=== PATIENT | female | born 1940 | race Caucasian/White ===

== ENCOUNTER 2016-08-27 21:22 | Inpatient (IN) | payer OTHER ==
[~2016-08-27] VITALS: Ht 170.2 cm; Wt 66.2 kg
[2016-08-28 00:23] LABS: HEMOGLOBIN 13.3 gm/dl (12.3-15.3); RED BLOOD COUNT 4.28 M/UL (4.00-5.10); WHITE BLOOD COUNT 9.5 K/UL (4.5-11.0)
[2016-08-28 01:15] LABS: BUN/CREATININE RATIO 31 (0-10)
[2016-08-28 05:42] LABS: RED BLOOD COUNT 4.24 M/UL (4.00-5.10)
[2016-08-28 06:03] LABS: BUN/CREATININE RATIO 27 (0-10)
[2016-08-30 05:21] LABS: HEMOGLOBIN 11.9 gm/dl (12.3-15.3); RED BLOOD COUNT 3.94 M/UL (4.00-5.10)
[2016-08-30 05:22] LABS: WHITE BLOOD COUNT 7.8 K/UL (4.5-11.0)
[2016-08-30 05:44] LABS: BUN/CREATININE RATIO 24 (0-10)
[2016-08-30 22:10] LABS: HEMOGLOBIN 11.6 gm/dl (12.3-15.3); RED BLOOD COUNT 3.74 M/UL (4.00-5.10)
[2016-08-30 22:11] LABS: WHITE BLOOD COUNT 18.9 K/UL (4.5-11.0)
[2016-08-31 07:07] LABS: HEMOGLOBIN 10.5 gm/dl (12.3-15.3); RED BLOOD COUNT 3.45 M/UL (4.00-5.10)
[2016-08-31 07:22] LABS: WHITE BLOOD COUNT 12.8 K/UL (4.5-11.0)
[2016-08-31 07:28] LABS: BUN/CREATININE RATIO 18 (0-10)
[2016-09-01 04:08] LABS: HEMOGLOBIN 9.8 gm/dl (12.3-15.3); RED BLOOD COUNT 3.23 M/UL (4.00-5.10)
[2016-09-01 04:27] LABS: BUN/CREATININE RATIO 16 (0-10)
[2016-09-02 06:26] LABS: HEMOGLOBIN 9.2 gm/dl (12.3-15.3); RED BLOOD COUNT 3.02 M/UL (4.00-5.10); WHITE BLOOD COUNT 12.4 K/UL (4.5-11.0)
[2016-09-02 07:01] LABS: BUN/CREATININE RATIO 20 (0-10)
[2016-09-03 05:57] LABS: HEMOGLOBIN 9.1 gm/dl (12.3-15.3); RED BLOOD COUNT 2.97 M/UL (4.00-5.10); WHITE BLOOD COUNT 10.3 K/UL (4.5-11.0)
[2016-09-03 06:16] LABS: BUN/CREATININE RATIO 26 (0-10)
[2016-09-04 06:17] LABS: HEMOGLOBIN 8.6 gm/dl (12.3-15.3); RED BLOOD COUNT 2.83 M/UL (4.00-5.10); WHITE BLOOD COUNT 9.6 K/UL (4.5-11.0)
[2016-09-04 06:36] LABS: BUN/CREATININE RATIO 26 (0-10)
== END 2016-09-05 17:15 | DRG 483 ==
LOC: ER1 21:22 → PROG CARE 08-28 01:30 → ZEROF 08-28 01:30 → MED SURG 4 08-28 01:30 → PROG CARE 08-28 21:15 → MED SURG 4 09-01 14:42
PROVIDERS: Internal Medicine; Orthopaedic Surgery; Physician Assistant; ADMIT Family Medicine
PROC: 0RRJ00Z Replacement of Right Shoulder Joint with Reverse Ball and Socket Synthetic Substitute, Open Approach (ICD-10-PCS; principal; 2016-08-30 15:15)
DX: M80.021A Age-related osteoporosis with current pathological fracture, right humerus, initial encounter for fracture (principal); E87.2 Acidosis; D62 Acute posthemorrhagic anemia; I48.91 Unspecified atrial fibrillation; E03.9 Hypothyroidism, unspecified; R79.89 Other specified abnormal findings of blood chemistry; Z82.49 Family history of ischemic heart disease and other diseases of the circulatory system; I27.2 Other secondary pulmonary hypertension; G56.21 Lesion of ulnar nerve, right upper limb; R25.2 Cramp and spasm
CPT/HCPCS: ECHO; 36415; 71010; 73020; 73030; 73060; 73200; 80048; 80053; 80074; 81001; 82550; 82553; 82962; 83036; 83605; 83874; 83880; 84439; 84443; 84484; 85025; 85027; 85610; 85730; 93005; 93306; 94640; 94664; 96374; 96375; 96376; 97110; 97116; 97530; 99284; 99291; C1776; J0690; J1644; J2270; J2795; J7030; J7050; J7120